=== PATIENT | female | born 1960 | race Caucasian/White ===

== ENCOUNTER → 2016-10-02 | Outpatient (CLI) | payer OTHER ==
[~2016-10-02] MED LIST: HYTRIN PO; LEVOTHROID (SY50 MCG PO; MOBIC15 MG PO; NEURONTIN300 MG PO; NORCO 5-325 MG1 TAB PO; REMERON 30 MG30 MG PO; REQUIP XL4 MG PO
== END | disposition disaster alternative care site (69) ==
LOC: GRAD 09:50
DX: M79.605 Pain in left leg (principal); M47.896 Other spondylosis, lumbar region; Z98.890 Other specified postprocedural states